=== PATIENT | female | born 1960 | race Caucasian/White ===

== ENCOUNTER 2020-07-30 07:20 | Emergency (ER) | payer BC ==
[~2020-07-30] VITALS: Ht 162.6 cm; Wt 68.3 kg
--- NOTE | 2020-07-30 07:39 | NUR ---
DR. DOWLING AT BEDSIDE FOR EVALUATION. PT ATTACHED TO ALL MONITORS. VSS. THIBODEAUX. NEHEMIAH AT BEDSIDE.
--- NOTE | 2020-07-30 07:46 | NUR ---
PT DENIES COWAN, DIZZINESS, CHANGING IN VISION, SOB, AND COUCHING.
[2020-07-30 08:34] LABS: MEAN CORPUSCULAR HEMOGLOBIN 33.8 pg (27.0-34.8); MEAN PLATELET VOLUME 10.6 fL (7.4-10.4); RED BLOOD COUNT 4.14 x10^6/uL (3.82-5.3); RED CELL DISTRIBUTION WIDTH 14.6 % (9.6-15.2)
[2020-07-30 08:42] LABS: ANION GAP 6 mmol/L (5-15); CALCIUM 8.9 mg/dL (8.5-10.1); CHLORIDE 108 mmol/L (98-107); CREATININE 0.73 mg/dL (0.55-1.02)
[2020-07-30] MEDS ORDERED: MAALOX/HYOSCYAMINE/LIDOCAINE 45 ML BTL PO ONE (09:00)
[2020-07-30 09:01] LABS: MD YES; PLATELET COUNT 87 x10^3/uL (130-400)
[2020-07-30] MEDS ORDERED: MAALOX/HYOSCYAMINE/LIDOCAINE 45 ML BTL ONE (09:02)
[2020-07-30 09:03] LABS: <PLATELET ESTIMATE> DECREASED; <PLT MORPHOLOGY> NORMAL PLT MORPH; <RBC MORPHOLOGY> NORMAL; BASOS#(MANUAL) 0.03 x10^3/uL (0-0.1); BASOS% (MANUAL) 1 % (0-1); EOS% (MANUAL) 3 % (1-7); LYMPH#(MANUAL) 1.43 x10^3/uL (1-3.4); LYMPHS% (MANUAL) 42 % (22-44); MONOS#(MANUAL) 0.48 x10^3/uL (0.3-2.7); MONOS% (MANUAL) 14 % (2-9); SEG#(MANUAL) 1.36 x10^3/uL (1.8-6.8); SEGS% (MANUAL) 40 % (42-75)
--- NOTE | 2020-07-30 09:07 | NUR ---
pt up to bathroom with steady gait, back to bed, attached to moniors, vss, nadn.
[2020-07-30 09:54] VITALS: BP 143/88
== END 2020-07-30 09:55 | disposition home or self-care (01) ==
LOC: ED 08:31
DX: R04.0 Epistaxis (principal); R94.31 Abnormal electrocardiogram [ECG] [EKG]; I10 Essential (primary) hypertension; Z87.891 Personal history of nicotine dependence; Z86.711 Personal history of pulmonary embolism
CPT/HCPCS: 36415; 71045; 80048; 85025; 85379; 93005; 99285

== ENCOUNTER 2020-08-15 08:42 | Emergency (ER) | payer BC ==
[~2020-08-15] VITALS: Ht 162.6 cm; Wt 67.0 kg
--- NOTE | 2020-08-15 08:54 | NUR ---
Sheryl hamm in ED - 08/15/20 at 0855 by LOUANN PT TO ROOM FROM JONATHON MARTINEZ WITH CANE. VARINDER RAMOS AT BEDSIDE TO LOWELL PT.
--- NOTE | 2020-08-15 09:07 | NUR ---
PT AMBULATORY TO ROOM 24, STEADY GAIT. PT DENIES N/V, DIZZINESS, LOC. PT DESCRIBES INJURY ON WEDNESDAY TRIP/FALL HITTING HEAD ON TAND. PT CONCERNED WITH INCREASED BRUISING AND SWELLING SINCE YESTERDAY. CALL LIGHT WITHIN REACH.
[2020-08-15] MEDS ORDERED: LORA-445 PO (09:12)
[2020-08-15] MEDS ORDERED: AMLO1CAP6 PO (09:12)
[2020-08-15] MEDS ORDERED: CLON0.1T22 PO (09:12)
[2020-08-15] MEDS ORDERED: ACET-1600 PO (09:12)
--- NOTE | 2020-08-15 09:21 | NUR ---
ICE PACK PROVIDED, PT TO CT. REPORT TO BENEDICTO MCCABE.
--- NOTE | 2020-08-15 09:36 | NUR ---
RECEIVED REPORT FROM ELIOT SINGER. PT BACK FROM CT. RESTING ON ALEKSANDR. NADN. VILLEGAS.
--- NOTE | 2020-08-15 10:09 | NUR ---
PT CHART REVIEWED AND PLACED FOR RECHECK.
[2020-08-15 10:13] VITALS: BP 156/102
--- NOTE | 2020-08-15 10:13 | NUR ---
PT RESTING ON GURNEY. BADILLO
== END 2020-08-15 11:06 | disposition home or self-care (01) ==
LOC: ED 09:17
DX: S00.12XA Contusion of left eyelid and periocular area, initial encounter (principal); S09.90XA Unspecified injury of head, initial encounter; I10 Essential (primary) hypertension; X58.XXXA Exposure to other specified factors, initial encounter; Y93.89 Activity, other specified; Y92.89 Other specified places as the place of occurrence of the external cause; Y99.8 Other external cause status
CPT/HCPCS: 70450; 70486; 99285

== ENCOUNTER 2020-08-17 09:17 | Emergency (ER) | payer BC ==
[~2020-08-17] VITALS: Ht 162.6 cm; Wt 67.8 kg
[~2020-08-17 09:17] MED LIST: ACET-1600 PO; AMLO1CAP6 PO; CLON0.1T22 PO; LORA-445 PO
--- NOTE | 2020-08-17 09:44 | NUR ---
ASSUMED CARE OF PT. PT HERE D/T WORSENING BRUISING FROM HER VISIT WEDNESDAY AND CONTINUED HEADACHE NOT RELIEVED FROM TYLENOL SHE IS TAKING.
[2020-08-17] MEDS ORDERED: ACETAMINOPHEN 325 MG TABLET ONE (11:10)
[2020-08-17 11:14] LABS: BASOPHILS % (AUTO) 2 % (0-1); EOSINOPHILS % (AUTO) 0 % (1-7); LYMPHOCYTES % (AUTO) 38 % (22-44); MEAN CORPUSCULAR HEMOGLOBIN 34.3 pg (27.0-34.8); MEAN PLATELET VOLUME 10.7 fL (7.4-10.4); MONOCYTES % (AUTO) 16 % (2-9); NEUTROPHILS % (AUTO) 45 % (42-75); PLATELET COUNT 74 x10^3/uL (130-400); RED BLOOD COUNT 3.84 x10^6/uL (3.82-5.3); RED CELL DISTRIBUTION WIDTH 14.6 % (9.6-15.2)
[2020-08-17 11:15] LABS: MD NO
--- NOTE | 2020-08-17 11:17 | NUR ---
Break RN note: Pt c/o / COWAN, requesting Tylenol. Discussed with Yao RAMOS. Orders for tylenol recieved. Pt medicated per MAR, lights in room dimmed. Pt provided cool washcloth per request for her forehead.
[2020-08-17 11:25] LABS: ALANINE AMINOTRANSFERASE 162 U/L (12-78); ALBUMIN 3.7 g/dL (3.4-5.0); ANION GAP 10 mmol/L (5-15); CALCIUM 9.2 mg/dL (8.5-10.1); CHLORIDE 107 mmol/L (98-107); CREATININE 0.69 mg/dL (0.55-1.02)
[2020-08-17 11:27] LABS: ALKALINE PHOSPHATASE 157 U/L (45-117); BILIRUBIN,TOTAL 1.2 mg/dL (0.2-1.0); TOTAL PROTEIN 8.4 g/dL (6.4-8.2)
[2020-08-17] MEDS ORDERED: ACETAMINOPHEN 325 MG TABLET PO ONE (11:30)
[2020-08-17] MEDS ORDERED: SODIUM CHLORIDE FLUSH 10ML SYR IVF ONE (12:00)
--- NOTE | 2020-08-17 12:06 | NUR ---
PT IS IN CT NOW
[2020-08-17] MEDS ORDERED: OMNIPAQUE 350 MG/ML, 100ML BOTTLE ONE (12:27)
--- NOTE | 2020-08-17 13:00 | NUR ---
TASK RN: PT RESTING ON ALEKSANDR. NADN. VILLEGAS. PT CHART REVIEWED AND PLACED FOR RECHECK.
[2020-08-17 14:07] VITALS: BP 161/83
== END 2020-08-17 14:10 | disposition home or self-care (01) ==
LOC: ED 10:03
DX: S06.0X0A Concussion without loss of consciousness, initial encounter (principal); S00.83XA Contusion of other part of head, initial encounter; I10 Essential (primary) hypertension; Z87.891 Personal history of nicotine dependence; Z86.711 Personal history of pulmonary embolism; W01.0XXA Fall on same level from slipping, tripping and stumbling without subsequent striking against object, initial encounter; Y93.89 Activity, other specified; Y92.009 Unspecified place in unspecified non-institutional (private) residence as the place of occurrence of the external cause; Y99.8 Other external cause status
CPT/HCPCS: 36415; 70460; 80053; 85025; 99285; Q9967